=== PATIENT | female | born 1975 | race Caucasian/White ===

== ENCOUNTER 2020-07-23 11:20 | Emergency (ER) | payer OTHER, SELFPAY ==
--- NOTE | ~2020-07-23 | US_ITS ---
EXAMINATION: US venous doppler UE RT DATE: 07/23/2020 12:30 INDICATION: Right upper limb pain. TECHNIQUE: Grayscale ultrasound images without and with compression and Doppler ultrasound images of the right upper extremity veins were obtained. COMPARISON: None. FINDINGS: The visualized portions of the right internal jugular vein, subclavian vein, axillary vein, brachial veins, basilic vein, cephalic vein, radial vein, and ulnar vein are patent. IMPRESSION: 1. No deep venous thrombosis. Reviewed, dictated and finalized at location [facility]
[2020-07-23 11:46] VITALS: BP 140/82; PULSE 69; RESP 14; TEMP 36.5; O2SAT 100
--- NOTE | 2020-07-23 12:45 | ED.EXTPRO ---
HPI - Extremity Problem General Chief complaint: Extremity Problem,Nontraumatic Stated complaint: possible clot in arm Source: patient Mode of arrival: ambulatory Limitations: no limitations History of Present Illness HPI Narrative: this is a 45-year-old female with history of breast cancer with bilateral mastectomy and currently on Arimidex, presents with a right upper extremity superficial phlebitis type pain inflammation with no recent phlebotomy of the vein, but the patient has been doing a lot of moving and possibly could of bumped her her arm. Currently the area is tender is firm with some mild redness with no fever chills no shortness of breath. Complaint: extremity pain Onset (ago): day(s) Pain Consistency: constant Location: right Severity scale (1-10): 2 Quality: aching Radiation: none Relieving factors: nothing Exacerbating factors: nothing Associated symptoms: denies other symptoms Related Data Home Medications Medication Instructions Recorded Confirmed anastrozole 1 mg PO DAILY 07/23/20 07/23/20 Allergies Allergy/AdvReac Type Severity Reaction Status Date / Time No Known Allergies Allergy Verified 07/23/20 11:44 Review of Systems Review of Systems: All systems reviewed & are unremarkable except as noted in HPI and below PMFSH Past Medical History Medical History History of breast cancer Exam Const: General: no acute distress and alert Orientation/consciousness: patient oriented x3 HENMT: Head: normal to inspection Eyes: Conjunctivae: conjunctivae normal Pupils: Equal, round and reactive pupils present EOM: EOMs intact bilaterally Neck: Neck: normal visual inspection, no lymphadenopathy and no meningeal signs Chest: Chest palpation & inspection: normal inspection of the chest Resp: Effort & Inspection: normal respiratory effort Auscultation: clear to auscultation bilaterally Cardio: Rate: regular rate Rhythm: regular rhythm : General: Yes no CVA tenderness Back/Spine/Pelvis: Back: no CVA tenderness Skin: General skin exam: normal color Other: mildly tender area in the area of the median basilic vein on the right Neuro: General: patient oriented x3, moves all extremities, no meningeal signs and no focal motor deficits Extrem: General: normal to inspection and no pedal edema Psych: Appearance: grossly normal Mental Status: mental status grossly normal Thought content: Yes Normal thought content present Course Course Emergency Course: reviewed ultrasound reports with patient and explained that there was no deep venous thrombosis and to use warm compresses and Tylenol or Motrin and follow up with primary care physician. Vital Signs Vital signs: Vital Signs Temperature 36.5 C 07/23/20 11:46 Pulse Rate 69 07/23/20 11:46 Respiratory Rate 14 07/23/20 11:46 Blood Pressure 140/82 07/23/20 11:46 Pulse Oximetry 100 07/23/20 11:46 Temperature 36.5 C 07/23/20 11:46 Pulse Rate 69 07/23/20 11:46 Respiratory Rate 14 07/23/20 11:46 Blood Pressure 140/82 07/23/20 11:46 Pulse Oximetry 100 07/23/20 11:46 Critical Care Time Critical Care Time Critical Care Time: No Discharge Plan Discharge Clinical Impression: Superficial thrombophlebitis Qualifiers: Superficial thrombophlebitis-Involved body area: upper extremity Laterality: right Qualified Code(s): I80.8 - Phlebitis and thrombophlebitis of other sites Patient Disposition: Home, Self-Care Condition: Stable Instructions: Antibiotic Form, Superficial Thrombophlebitis (ED) Additional Instructions: use warm compress to affected arm, Tylenol or Motrin as needed for pain and inflammation and follow-up with primary care physician within 1 to 2 weeks for further evaluation and treatment. Prescriptions: No Action anastrozole 1 mg Tablet 1 mg PO DAILY RF: 0 Follow-up/Referrals: Braxton Her MD [[facility]
[2020-07-23 13:18] VITALS: PULSE 77; RESP 20; O2SAT 99
== END 2020-07-23 13:08 | disposition home or self-care (01) ==
PROVIDERS: Emergency Provider Emergency Medicine; PCP Internal Medicine
DX: I80.8 Phlebitis and thrombophlebitis of other sites (principal)
CPT/HCPCS: 93971; 99282; 99284

== ENCOUNTER 2023-05-11 12:40 | Outpatient (CLI) | payer OTHER, SELFPAY ==
[2023-05-11 12:56] LABS: Basophils Absolute Auto 0.06 K/mm3 (0.00-0.10); Basophils Percent Auto 0.6 % (0.0-1.0); Eosinophils Absolute Auto 0.14 K/mm3 (0.02-0.50); Eosinophils Percent Auto 1.5 % (1.0-6.0); Hemoglobin 15.6 g/dL (12.0-15.0); Immature Granulocyte Absolute 0.03 K/mm3 (0.00-0.00); Immature Granulocyte Percent A 0.3 % (0.0-0.0); Lymphocytes Absolute Auto 2.57 K/mm3 (1.10-4.50); Lymphocytes Percent Auto 27.6 % (18.0-42.0); Mean Corpuscular HGB Conc 33.2 g/dL (32.0-36.0); Mean Corpuscular Hemoglobin 30.3 pg (27.0-31.0); Mean Corpuscular Volume 91.3 fL (78.0-102.0); Mean Platelet Volume 8.7 fl (9.2-11.8); Monocytes Absolute Auto 0.57 K/mm3 (0.10-0.90); Monocytes Percent Auto 6.1 % (2.0-11.0); Neutrophils Absolute Auto 5.9 K/mm3 (1.7-7.2); Neutrophils Percent Auto 63.9 % (50.0-70.0); Platelet Count Result 306 K/mm3 (150-420); Red Blood Count 5.15 M/mm3 (4.20-5.40); Red Cell Distribution Width 12.3 % (11.6-14.4); White Blood Count 9.3 K/mm3 (4.8-10.8)
[2023-05-11 12:57] LABS: Appearance Urine Clear (Clear); Bilirubin Urine Negative (Negative); Blood Urine Negative (Negative); Color Urine Light Yellow (Yellow); Glucose Urine UA Negative (Negative); Ketones Urine Negative (Negative); Leukocyte Esterase Ur Negative LEU/UL (Negative); Nitrate Urine Negative (Negative); Protein Urine Negative (Negative); Specific Grav Ur 1.015 (1.010-1.020); Urobilinogen Urine 0.2 mg/dL (0.2-1.0)
[2023-05-11 12:59] LABS: Add Urine Microscopic? NO
[2023-05-11 13:41] LABS: Alanine Aminotransferase 23 U/L (14-59); Albumin Level 4.1 g/dL (3.4-5.0); Alkaline Phosphatase 80 U/L (46-116); Anion Gap 10 mmol/L (8-16); Aspartate Amino Transferase 14 U/L (15-37); Blood Urea Nitrogen 12 mg/dL (7-18); Calcium 9.9 mg/dL (8.5-10.1); Carbon Dioxide 28 mmol/L (21-32); Chloride 102 mmol/L (98-108); Cholesterol 187 mg/dL (0-200); Estimated Glomerular Filt Rate > 60; Free T4 Free Thyroxine 1.13 ng/dL (0.76-1.46); Glucose 94 mg/dL (70-99); HDL Direct 63 mg/dL (40-60); LDL Cholesterol Calculated 99 mg/dL (<130); Osmolality Calculated 289 mOsm/kg (285-295); Potassium 4.1 mmol/L (3.5-5.1); Sodium 140 mmol/L (136-145); Thyroid Stimulating Hormone 1.58 uIU/mL (0.36-3.74); Total Protein 7.9 g/dL (6.4-8.2); Triglycerides 126 mg/dL (0-150)
== END 2023-05-11 12:41 | disposition home or self-care (01) ==
LOC: CHSLAB 12:42
PROVIDERS: PCP Internal Medicine; Visit Provider Internal Medicine
DX: Z00.00 Encounter for general adult medical examination without abnormal findings (principal)
CPT/HCPCS: 36415; 80053; 80061; 81003; 84439; 84443; 85025

== ENCOUNTER 2023-05-25 12:19 | Outpatient (CLI) | payer OTHER, SELFPAY ==
--- NOTE | 2023-06-26 11:24 | P.PCNHOL_ITS ---
Holter/Event Monitor Holter/Event Monitor Date of procedure: 05/25/23 Holter/Event Procedure: Event Monitor Indications: Palpitations Conclusion: 1. 30 day event monitor between 05/25/23-06/23/23. This is an event triggered monitor. There are 37 available transmissions for analysis. 2. Predominant rhythm is sinus rhythm. HR range 57-186 bpm. 3. There are occasional premature supraventricular complexes noted on tr ansmissions. There is 1 episode of atrial tachycardia at 140 bpm lasting 4 beats on 05/27/23 at 13:46. 4. There are occasional premature ventricular complexes noted on transmissions. There is 1 episode of ventricular tachycardia at 186 bpm lasting 7 beats on 06/23/23 at 14:10. 5. No significant pauses greater than 2 seconds. 6. Patient reports 2 episodes of symptoms other than listed which demonstrate sinus rhythm at 98 bpm and the 1 episode of atrial tachycardia described above.
== END 2023-05-25 12:20 | disposition home or self-care (01) ==
LOC: CHSCARD 12:23
PROVIDERS: PCP Internal Medicine; Visit Provider Internal Medicine
DX: R00.2 Palpitations (principal)
CPT/HCPCS: 93270

== ENCOUNTER 2023-06-29 09:57 | Outpatient (CLI) | payer OTHER, SELFPAY ==
[2023-06-29 10:17] LABS: Basophils Absolute Auto 0.06 K/mm3 (0.00-0.10); Basophils Percent Auto 0.6 % (0.0-1.0); Eosinophils Absolute Auto 0.12 K/mm3 (0.02-0.50); Eosinophils Percent Auto 1.2 % (1.0-6.0); Hemoglobin 15.5 g/dL (12.0-15.0); Immature Granulocyte Absolute 0.03 K/mm3 (0.00-0.00); Immature Granulocyte Percent A 0.3 % (0.0-0.0); Lymphocytes Percent Auto 23.7 % (18.0-42.0); Mean Corpuscular Hemoglobin 30.1 pg (27.0-31.0); Mean Corpuscular Volume 91.3 fL (78.0-102.0); Mean Platelet Volume 8.6 fl (9.2-11.8); Monocytes Absolute Auto 0.49 K/mm3 (0.10-0.90); Monocytes Percent Auto 4.8 % (2.0-11.0); Neutrophils Percent Auto 69.4 % (50.0-70.0); Platelet Count Result 314 K/mm3 (150-420); Red Blood Count 5.15 M/mm3 (4.20-5.40); Red Cell Distribution Width 12.2 % (11.6-14.4); White Blood Count 10.1 K/mm3 (4.8-10.8)
[2023-06-29 10:52] LABS: Anion Gap 7 mmol/L (8-16); Blood Urea Nitrogen 18 mg/dL (7-18); Calcium 9.1 mg/dL (8.5-10.1); Carbon Dioxide 31 mmol/L (21-32); Chloride 102 mmol/L (98-108); Estimated Glomerular Filt Rate > 60; Free T3 3.22 pg/mL (2.18-3.98); Free T4 Free Thyroxine 0.94 ng/dL (0.76-1.46); Glucose 87 mg/dL (70-99); Magnesium 2.2 mg/dL (1.8-2.4); Osmolality Calculated 290 mOsm/kg (285-295); Potassium 4.5 mmol/L (3.5-5.1); Sodium 140 mmol/L (136-145); Thyroid Stimulating Hormone 0.89 uIU/mL (0.36-3.74)
== END 2023-06-29 09:58 | disposition home or self-care (01) ==
LOC: CHSLAB 09:58
PROVIDERS: PCP Internal Medicine; Visit Provider Internal Medicine
DX: I47.29 Other ventricular tachycardia (principal)
CPT/HCPCS: 36415; 80048; 83735; 84439; 84443; 84481; 85025

== ENCOUNTER 2023-07-13 02:56 | Day surgery (SDC) | payer OTHER, SELFPAY ==
--- NOTE | 2023-07-11 12:50 | SUR.PREOP ---
Patient called regarding upcoming procedure. Reviewed preop instructions, appointment times, and procedure prep.
[2023-07-13 07:07] VITALS: BP 102/74; PULSE 77; RESP 18; TEMP 35.9; O2SAT 100; BMI 20.2
[2023-07-13] MEDS: LACTATED RINGERS 1,000 ML 150 ML IV CONT (07:24)
--- NOTE | 2023-07-13 08:17 | WPDANESEPPF ---
Anes - Initial Pre Proc Eval Procedure: Operation Date: 07/13/23 08:30 Proposed Procedures p Screening Colonoscopy - Andrew Gonzales DO Date/Time: 07/13/23 08:17 Surgeon: Andrew Gonzales DO Pre Op Diagnosis: neoplasm screening Patient Data Age: 48 Gender: F Height: 1.65 m Weight: 55.2 kg Last Vital Signs Temp 96.6 F L 07/13/23 07:07 Pulse 77 07/13/23 07:07 Resp 18 07/13/23 07:07 BP 102/74 07/13/23 07:07 Pulse Ox 100 07/13/23 07:07 O2 Del Method Room Air 07/13/23 07:07 Allergies Allergy/AdvReac Type Severity Reaction Status Date / Time No Known Allergies Allergy Verified 07/13/23 07:12 Home Medications Medication Instructions Recorded Confirmed Type anastrozole 1 mg tablet 1 mg PO DAILY 07/23/20 07/13/23 History calcium carbonate 600 mg-vitamin 1 tablet PO BID 06/29/23 07/13/23 History D3 5 mcg (200 unit) tablet Patient hx anesthesia problems: none Family hx anesthesia problems: none Results Review: All pre-operative results and documents have been reviewed as part of the pre-operative evaluation. [facility] Past Medical History Medical History History of breast cancer Social History Social History Years smoked: 37 Smoking status: Current every day smoker Tobacco type: cigarettes Alcohol intake: current Alcohol use details: 2 glasses of wine monthly Substance use: current Substance use type: marijuana Last use: 3X weekly Living arrangements: with family Spiritual care concerns: No Anes - Eval Final PreProcedure Day of Procedure 07/13/23 08:17 Patient weight: normal Heart: regular rate and rhythm Lungs: clear to auscultation Airway: Mallampati scale class II Neurological: alert and oriented Last oral intake: >/= 8 hours ASA classification: III Emergent: no Anesthetic plan: proceed Anesthesia type and monitoring: general GIVS and standard monitoring Results Review: All pre-operative results and documents have been reviewed as part of the pre-operative evaluation. Informed Consent: The patient's anesthetic plan and its attendant risks and benefits were discussed with the patient/family/POA. Questions were solicited and answers provided to the satisfaction of the patient/family/POA.
--- NOTE | 2023-07-13 08:32 | PM.IMHP ---
H&P: HPI History of Present Illness Date/Time: 07/13/23 08:32 Chief Complaint: Screening for colorectal cancer Narrative: This is a 48-year-old woman who presents for colonoscopy. She has never had a colonoscopy before. She denies any hematochezia or melena. She does have a history of breast cancer, but does not have any family history of colorectal cancer. Review of Systems Review of Systems: All systems reviewed & are unremarkable except as noted in HPI and below Constitutional: Constitutional: Denies chills, Denies fever(s), Denies headache(s) and Denies weight loss Eyes: Eyes: Denies change in vision ENT: Denies dizziness, Denies headache(s), Denies neck mass and Denies throat swelling Cardiovascular: Cardiovascular: Denies chest pain, Denies lightheadedness and Denies dyspnea Respiratory: Respiratory: Denies cough, Denies dyspnea and Denies wheezing Gastrointestinal: Gastrointestinal: Denies abdominal pain, Denies change in bowel habits, Denies nausea and Denies vomiting Genitourinary: Genitourinary: Denies hematuria and Denies dysuria Musculoskeletal: Musculoskeletal: Reports as per HPI Integumentary/Breasts: Skin/Breast: Reports as per HPI Neurologic: Denies dizziness and Denies headache(s) Allergic/Immunologic: Allergic/Immunologic: Denies throat swelling and Denies wheezing PMFSH Past Medical History Medical History History of breast cancer Social History Social History Years smoked: 37 Smoking status: Current every day smoker Tobacco type: cigarettes Alcohol intake: current Alcohol use details: 2 glasses of wine monthly Substance use: current Substance use type: marijuana Last use: 3X weekly Living arrangements: with family Spiritual care concerns: No Meds Home Medications and Allergies Home Medications Medication Instructions Recorded Confirmed Type anastrozole 1 mg tablet 1 mg PO DAILY 07/23/20 07/13/23 History calcium carbonate 600 mg-vitamin 1 tablet PO BID 06/29/23 07/13/23 History D3 5 mcg (200 unit) tablet Allergies Allergy/AdvReac Type Severity Reaction Status Date / Time No Known Allergies Allergy Verified 07/13/23 07:12 Vital Signs Vital Signs - 24 hr 07/13/23 07:07 Temperature 35.9 C L Pulse Rate 77 Respiratory Rate 18 Blood Pressure 102/74 Pulse Oximetry 100 Oxygen Delivery Room Air Exam Const: General: no acute distress and alert Orientation/consciousness: patient oriented x3 HENMT: Head: normocephalic and atraumatic Ears: hearing grossly normal bilaterally Face/Nose/Sinus: Normal nares present Mouth: Yes Normal oral and palatal mucosa present Eyes: Periorbital: periorbital findings normal Sclera: sclerae normal EOM: EOMs intact bilaterally Neck: Neck: normal visual inspection, no lymphadenopathy and trachea midline Chest: Chest palpation & inspection: normal inspection of the chest Resp: Effort & Inspection: normal respiratory effort Auscultation: clear to auscultation bilaterally Cardio: Jugular venous distension: no JVD Rate: regular rate Rhythm: regular rhythm Heart sounds: S1 normal heart sound present and S2 normal heart sound present Peripheral pulses: Peripheral pulses 2+ throughout GI: Inspection: normal to inspection GI Palp: Yes Soft to palpation, No Tenderness to palpation present (GI), No Guarding due to palpation present (GI) and No Rebound tenderness present Percussion: Yes normal to percussion Auscultation: normal bowel sounds : General: Yes no CVA tenderness Back/Spine/Pelvis: Back: no CVA tenderness Neuro: General: patient oriented x3, no focal motor deficits and CN's II-XI intact bilaterally Cognition (Neuro): normal cognition Speech: normal speech Motor exam (neuro): 5/5 motor strength present throughout Extrem: General: capillary refill normal and no clubbing, cyanosi
[2023-07-13 09:07] VITALS: BP 88/53; PULSE 70; RESP 20; O2SAT 96
[2023-07-13 09:17] VITALS: BP 102/67; PULSE 67; RESP 24; O2SAT 100
[2023-07-13 09:27] VITALS: BP 104/72; PULSE 59; RESP 16; O2SAT 100
== END 2023-07-13 09:41 | disposition home or self-care (01) ==
PROVIDERS: PCP Internal Medicine; Visit Provider Surgery
PROC: 0DJD8ZZ Inspection of Lower Intestinal Tract, Via Natural or Artificial Opening Endoscopic (ICD-10-PCS; CPT 45378; principal; 2023-07-13 08:30)
DX: Z12.11 Encounter for screening for malignant neoplasm of colon (principal); D12.5 Benign neoplasm of sigmoid colon; D12.8 Benign neoplasm of rectum; Z85.3 Personal history of malignant neoplasm of breast; F17.210 Nicotine dependence, cigarettes, uncomplicated
CPT/HCPCS: 45385; 88305; J2704; J7120